=== PATIENT | female | born 1955 | race Caucasian/White ===

== ENCOUNTER → 2017-03-08 | Outpatient (CLI) | payer BC | LOC: BMCIMAGING 10:53 | PROVIDERS: ATTEND Family Medicine | DX: R68.84 Jaw pain (principal) ==

== ENCOUNTER → 2017-03-24 | Outpatient (CLI) | payer BC | LOC: FIMAGING 14:16 | PROVIDERS: ATTEND Radiology Diagnostic Radiology | DX: Z94.4 Liver transplant status (principal); K76.0 Fatty (change of) liver, not elsewhere classified ==

== ENCOUNTER → 2018-08-12 | Outpatient (CLI) | payer BC | LOC: BMCIMAGING 12:35 | PROVIDERS: ATTEND Emergency Medicine | DX: S42.401A Unspecified fracture of lower end of right humerus, initial encounter for closed fracture (principal); S92.401A Displaced unspecified fracture of right great toe, initial encounter for closed fracture; M19.071 Primary osteoarthritis, right ankle and foot; M77.31 Calcaneal spur, right foot ==

== ENCOUNTER → 2018-08-24 | Outpatient (CLI) | payer BC | LOC: BMCIMAGING 11:40 | PROVIDERS: ATTEND Orthopaedic Surgery Hand Surgery | DX: S42.331A Displaced oblique fracture of shaft of humerus, right arm, initial encounter for closed fracture (principal); X58.XXXA Exposure to other specified factors, initial encounter ==

== ENCOUNTER → 2018-09-12 | Outpatient (CLI) | payer BC | LOC: BMCIMAGING 15:05 | PROVIDERS: ATTEND Orthopaedic Surgery Hand Surgery | DX: S42.331D Displaced oblique fracture of shaft of humerus, right arm, subsequent encounter for fracture with routine healing (principal) ==

== ENCOUNTER → 2018-10-04 | Outpatient (CLI) | payer BC | LOC: BMCIMAGING 15:31 | PROVIDERS: ATTEND Orthopaedic Surgery Hand Surgery | DX: S42.331D Displaced oblique fracture of shaft of humerus, right arm, subsequent encounter for fracture with routine healing (principal) ==

== ENCOUNTER → 2018-11-01 | Outpatient (CLI) | payer BC | LOC: BMCIMAGING 15:47 | PROVIDERS: ATTEND Orthopaedic Surgery Hand Surgery | DX: S42.391D Other fracture of shaft of right humerus, subsequent encounter for fracture with routine healing (principal) ==

== ENCOUNTER → 2018-11-29 | Outpatient (CLI) | payer BC | LOC: BMCIMAGING 15:22 | PROVIDERS: ATTEND Orthopaedic Surgery Hand Surgery | DX: S42.294D Other nondisplaced fracture of upper end of right humerus, subsequent encounter for fracture with routine healing (principal) ==

== ENCOUNTER → 2019-01-17 | Outpatient (CLI) | payer BC | LOC: FIMAGING 09:57 | DX: R94.5 Abnormal results of liver function studies (principal); K76.89 Other specified diseases of liver; Z94.9 Transplanted organ and tissue status, unspecified ==

== ENCOUNTER → 2019-02-15 | Outpatient (CLI) | payer BC | LOC: BMCIMAGING 09:48 | PROVIDERS: ATTEND Orthopaedic Surgery Hand Surgery | DX: S42.391D Other fracture of shaft of right humerus, subsequent encounter for fracture with routine healing (principal); M85.9 Disorder of bone density and structure, unspecified ==

== ENCOUNTER → 2019-02-16 | Outpatient (CLI) | payer BC | LOC: FIMAGING 07:35 ==

== ENCOUNTER → 2019-02-17 | Outpatient (CLI) | payer BC ==
[~2019-02-17] MED LIST: REGADENOSON 0.4 MG/5 ML SYR IVP ONE
--- NOTE | 2019-02-17 18:04 | CPR ---
[f rep st] NONINVASIVE CARDIAC PROCEDURE REPORT DATE OF PROCEDURE: 02/17/2019 REPORT TITLE: LEXISCAN NUCLEAR STUDY STRESS TEST. INDICATION: This is a surgical clearance due to an abnormal EKG. Resting EKG shows a sinus rhythm with a ventricular rate of 72. No ischemic changes are noted. No a rrhythmias. Resting blood pressure 112/86, oxygen saturation 100%, resting heart rate 72. STRESS PORTION: Lexiscan nuclear stress test: Lexiscan injected, followed by saline flush. Cardiol ite was then injected, followed by saline flush. She had no abnormal rhythms. EKG remained stable. Blood pressure 122/72, peak heart rate 93, oxygen saturation 98%. She had no adverse symptoms with the injection. RECOVERY: She spontaneously recovered with recovery blood pressure 126/70, recovery heart rate 88. She remains asymptomatic. EKG is stable with no ischemic changes or arrhythmias. At this time, she currently is stable for nuclear imaging. /[id number]/MODL
== END ==
LOC: FIMAGING 13:17
PROVIDERS: ATTEND Internal Medicine Cardiovascular Disease
DX: Z01.810 Encounter for preprocedural cardiovascular examination (principal); R93.1 Abnormal findings on diagnostic imaging of heart and coronary circulation
CPT/HCPCS: 78452; 93017; A9500; J2785

== ENCOUNTER 2019-02-21 09:15 | Inpatient (IN) | payer BC ==
[~2019-02-21 09:15] MED LIST changes: +BACITRACIN 50,000 UNITS/10 ML SYR IRR ONE; +BUPIVACAINE/EPI 0.5% 30 ML SDV ONE; -REGADENOSON 0.4 MG/5 ML SYR IVP ONE; +TRANEXAMIC ACID 1,000 MG in NS 100 ML IV ONE; +TRANEXAMIC ACID 3,000 MG in NS (SYRINGE) 50 ML IRR ONE
[2019-02-21] MEDS ORDERED: ceFAZolin 2 GM/DEXTROSE 100 ML IV ONE (09:29)
[2019-02-21] MEDS ORDERED: VANCOMYCIN HCL/NORMAL SALINE 250 ML IV ONE (09:29)
[2019-02-21] MEDS ORDERED: NS 500 ML IV ONE (09:40)
[2019-02-21] MEDS ORDERED: LIDOCAINE 1% 2 ML INJ ID PRN (09:40)
--- NOTE | 2019-02-21 09:52 | PDHPUP ---
History & Physical Update H&P update statement: This history and physical update is based on an assessment of the patient which was completed after admission or registration (within 24 hours), but prior to the surgery/procedure. H&P update: H&P reviewed & patient examined, no change in patient's condition since H&P completed
--- NOTE | 2019-02-21 10:29 | PDANEPAE ---
ANE History of Present Illness traumatic fx R prox humerus, nonunion here for ORIF ANE Past Medical History - Cardiovascular History Hx Hypertension: No Hx Arrhythmias: No Hx Chest Pain: No Hx Coronary Artery / Peripheral Vascular Disease: Yes Hx CHF / Valvular Disease: No Hx Palpitations: No - Pulmonary History Hx COPD: No Hx Asthma/Reactive Airway Disease: No Hx Recent Upper Respiratory Infection: No Hx Oxygen in Use at Home: Yes Hx Sleep Apnea: No Sleep Apnea Screening Result - Last Documented: Negative Pulmonary History Comment: PNA X2 IN PAST - Neurologic History Hx Cerebrovascular Accident: No Hx Seizures: No Hx Dementia: No - Endocrine History Hx Diabetes: No - Renal History Hx Renal Disorders: No Renal History Comment: KIDNEY DISEASE. WAS ON DIALYSIS FOR 9 MOS - LAST TX 4 YRS AGO. STILL HAS FISTULA - Liver History Hx Hepatic Disorders: Yes Hepatic History Comment: LIVER TRANSPLANT 2008. STENT - Neurological & Psychiatric Hx Hx Neurological and Psychiatric Disorders: No - Cancer History Hx Cancer: No - Congenital Disorder History Hx Congenital Disorders: No Congenital History Comment: ALPHA 1 ANTI-TRYPSIN DEFICIENCY - GI History Hx Gastrointestinal Disorders: Yes Gastrointestinal History Comment: DIARRHEA W/MEDS - Other Health History Other Health History: L ARM FISTULA - PLACED BUT NEVER USED. VEINS ON L HAND USED AND BADLY BRUISED AND COLLAPSED - LAST 2 DRAWS WERE SYRINGE DRAWS. NEITHER ARM FOR BP - Chronic Pain History Chronic Pain: Yes (BACK, KNEES) - Surgical History Prior Surgeries: LIVER TRANSPLANT 2008. WRIST L. APPENDECTOMY. KNEE L SCOPE. EYE SURG - RETINAL. FOOT INJURY. BREAST BX ANE Review of Systems Review of Systems: - Exercise capacity METS (RN): 4 METS ANE Patient History - Allergies Allergies/Adverse Reactions: hydromorphone HCl [From Dilaudid] Allergy (Verified 08/12/15 14:58) Hallucinations iodine Allergy (Verified 08/12/15 14:58) Throat tightness, neck swelling Alarcon peppers Allergy (Unknown, Uncoded 08/12/15 14:58) Unknown - Home Medications Home medications: home medication list seen and reviewed Home Medications: LISINOPRIL 12/28/10 [Last Taken Unknown] Quinine 340mg PRN 11/18/12 [Last Taken Unknown] Lasix 02/06/19 [Last Taken Unknown] Multivitamin 02/06/19 [Last Taken Unknown] Tacrolimus 02/06/19 [Last Taken Unknown] - NPO status NPO Status: no food or drink >8 hours NPO Since - Liquids (Date): 02/21/19 NPO Since - Liquids (Time): 07:30 NPO Since - Solids (Date): 02/20/19 NPO Since - Solids (Time): 18:00 - Anes Hx Anes Hx: no prior problems - Smoking Hx Smoking Status: Never smoked - Alcohol Use Alcohol Use: Occasionally - Family Anes Hx Family Hx Anesthesia Complications: NEG ANE Labs/Vital Signs - Labs Result Diagrams: 02/21/19 10:00 - Vital Signs Blood Pressure: 161/71 Heart Rate: 75 Respiratory Rate: 18 O2 Sat (%): 100 Height: 171.45 cm Weight: 60.328 kg ANE Physical Exam - Airway Neck exam: FROM Mallampati Score: Class 2 Mouth exam: normal dental/mouth exam - Pulmonary Pulmonary: no respiratory distress, clear to auscultation - Cardiovascular Cardiovascular: regular rate and rhythym, no murmur, rub, or gallop - ASA Status ASA Status: III ANE Anesthesia Plan Anesthesia Plan: general endotracheal anesthesia, GA w LMA
[2019-02-21] MEDS ORDERED: MIDAZOLAM 2 MG/2 ML VIAL IVP ONE (10:33)
[2019-02-21] MEDS ORDERED: PROPOFOL 200 MG/20 ML VIAL ONE (10:38)
[2019-02-21] MEDS ORDERED: LIDOCAINE 2% 100 MG/5 ML SYR ONE (10:38)
[2019-02-21] MEDS ORDERED: fentaNYL 100 MCG/2 ML INJ ONE ×5 (10:38→16:40)
[2019-02-21] MEDS ORDERED: VANCOMYCIN 1 GM VIAL ONE (11:32)
[2019-02-21] MEDS: VANCOMYCIN 1 GM VIAL IRR ONE ×2 (11:34→11:36)
[2019-02-21] MEDS ORDERED: DEXAMETHASONE 4 MG/ML VIAL ONE (11:37)
[2019-02-21] MEDS ORDERED: ONDANSETRON 4 MG/2 ML VIAL ONE (11:37)
[2019-02-21] MEDS ORDERED: TRIAMCINOLONE ACETONIDE 40 MG/ML VIAL ONE (11:45)
[2019-02-21] MEDS ORDERED: ePHEDrine SULFATE 25 MG/5 ML SYR ONE (13:44)
[2019-02-21] MEDS ORDERED: NALOXONE HCL 0.4 MG/ML INJ IVP PRN (15:03)
[2019-02-21] MEDS ORDERED: ACETAMINOPHEN 500 MG TAB PO PRN (15:03)
[2019-02-21] MEDS ORDERED: ONDANSETRON 4 MG/2 ML VIAL IVP PRN ×2 (15:03→15:13)
[2019-02-21] MEDS ORDERED: oxyCODONE IR 5 MG TAB PO PRN ×2 (15:03→15:13)
[2019-02-21] MEDS ORDERED: HYDROCODONE/APAP 5/325 TAB PO PRN (15:03)
--- NOTE | 2019-02-21 15:06 | POSTANESTH ---
Post Anesthetic Evaluation Cardiovascular Status: Normal, Stable, Similar to Pre-Op Cond Respiratory Status: Normal, Stable, Similar to Pre-op Cond. Level of Consciousness/Mental Status: Can Participate in Eval, Alert and Oriented Pain Control: Adequate, Prn Tx Ordered Nausea/Vomiting Control: Adequate, Prn Tx Ordered Complications Possibly Related to Anesthesia: None Noted
[2019-02-21] MEDS ORDERED: ACETAMINOPHEN 325 MG TAB PO PRN (15:13)
[2019-02-21] MEDS ORDERED: PROMETHAZINE HCL 25 MG/ML INJ IVP PRN (15:13)
[2019-02-21] MEDS ORDERED: ALBUTEROL 60 PUFFS/8 GM MDI IH PRN (15:19)
[2019-02-21] MEDS ORDERED: LR 1,000 ML IV SCH (15:30)
[2019-02-21] MEDS: fentaNYL 100 MCG/2 ML INJ IVP PRN ×4 (15:35→16:42)
--- NOTE | 2019-02-21 16:31 | GCON ---
[f rep st] CONSULTATION DATE OF CONSULTATION: 02/21/2019 The patient is a pleasant 63-year-old female who is postoperative day 0 from a humerus fracture repai r. It sounds like she had nonunion. She has a complex medical history including liver transplant ab out 10 years ago for alpha-1 antitrypsin deficiency with resulting cirrhosis. She also has chronic k idney disease. I am asked to see her in consultation. When I speak with the patient, she says other than the weeks immediately following transplant, the patient has had no trouble with rejection, take s only sirolimus for immunosuppression, does not have symptoms of liver failure such as lower extremi ty edema, ascites, or jaundice. She also has chronic kidney disease with a baseline creatinine of about 2.2. It is notable that is h er creatinine when checked today. She recently had a trial of tacrolimus, upon which she did poorly and has been transferred back to [facility]. She is followed at [facility]. The patient had a recent nuclear medicine stress test showing no ischemia and possible infarct versus artifact in the inferolateral and apical areas. This was performed on the basis of an abnormal EKG. The most recent EKG I reviewed, which was 4 years ago, was relatively normal. She does not describ e exertional symptoms to me. REVIEW OF SYSTEMS: Complete 10-point review of systems is conducted, negative except as noted in the HPI. 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 ALLERGIES: Iodine, spann peppers and Dilaudid. HOME MEDICATIONS: Albuterol, flurandrenolide which is a topical steroid, furosemide, lisinopril, chayo nine, sirolimus, sodium bicarb, temazepam. SOCIAL HISTORY: No tobacco. No alcohol. She is the first female inducted into the [employer] [facility]. FAMILY HISTORY: Reviewed and unremarkable. PHYSICAL EXAM: VITAL SIGNS: Afebrile, 36.7. Blood pressure 120/63, pulse 99, breathing 13 times a minute, 98% on face mask. GENERAL: In no acute distress, conversant. HEENT: Sclerae are anicteric . Oropharynx is clear. Mucous membranes are moist. NECK: Supple. No lymphadenopathy or JVD. JAVIER GS: Clear to auscultation bilaterally. HEART: S1, S2. ABDOMEN: Soft, nontender and nondistended. LOWER EXTREMITIES: Without edema. Calves are nontender. SKIN: Without rash. NEUROLOGIC: Exam is nonfocal. LABS: A week ago, she had a CBC with a white count of 4, hematocrit 31, platelets are 222,000. Rece nt coags 6 months ago were normal. CBC shows a sodium of 138, potassium 4.4, chloride 109, bicarb 15 , BUN 17, creatinine 2.2. A bicarb prior to that was 9, probably leading to the institution of bicar bonate therapy. Tacrolimus level was 1.9, which is a low level last week, although she has subsequen tly been restarted. I discussed the case with Dr. Lion Mcgee. ASSESSMENT AND PLAN: This is a pleasant 63-year-old female, postop day 0 from humerus surgery follow ing nonunion. 1. Humerus surgery. Management per Dr. Doshi. The patient appears to be have her pain reasonably wel l controlled. 2. Liver transplant. We will continue her sirolimus as prescribed. She appears to have done quite well from the transplant. 3. Metabolic acidosis. This is probably from her chronic kidney disease. Will continue bicarb as p rescribed. If she is in the hospital longer than 24 hours, it is reasonable to repeat labs. 4. Chronic kidney disease. She has abnormal baseline creatinine. Would follow if in the hospital l onger than 24 hours. She appears euvolemic at this time. 5. Prophylaxis management per Ortho. DISPOSITION: Observation status. Thank you for this consultation. Hospital Medicine will follow. /[id number]/MODL
[2019-02-21] MEDS: ceFAZolin 2 GM/DEXTROSE 100 ML IV SCH (17:38)
[2019-02-21] MEDS: SODIUM BICARBONATE 650 MG TAB PO SCH ×2 (17:52→22:24)
[2019-02-21] MEDS: oxyCODONE IR 5 MG TAB PO PRN ×2 (18:54→22:28)
[2019-02-21] MEDS: ACETAMINOPHEN 325 MG TAB PO SCH ×2 (22:23→23:47)
[2019-02-21] MEDS: TEMAZEPAM 15 MG CAP PO SCH (22:24)
[2019-02-22] MEDS: ceFAZolin 2 GM/DEXTROSE 100 ML IV SCH (01:02)
[2019-02-22] MEDS: oxyCODONE IR 5 MG TAB PO PRN ×2 (02:42→08:13)
[2019-02-22] MEDS: ACETAMINOPHEN 325 MG TAB PO SCH ×6 (02:50→21:22)
--- NOTE | 2019-02-22 06:47 | GOP ---
[f rep st] OPERATIVE REPORT DATE OF OPERATION: SURGEON: Lion Doshi MD ANESTHESIA: General. PREOPERATIVE DIAGNOSIS: Right humerus nonunion. POSTOPERATIVE DIAGNOSIS: Right humerus nonunion. PROCEDURE PERFORMED: Right humerus nonunion repair with compression plating and allograft bone. ASSIST: Mary Solomon RN-FA was the clinical nursing assistant for this surgery. A clinical nursing assistant was medically necessary for the safe and successful completion of this case. ESTIMATED BLOOD LOSS: 300 cc. INDICATIONS: The patient is a 63-year-old female well known to me. She has a past medical history of a liver transplant, has multiple medical comorbidities. She first sustained a fall August 12, sustaining a right humerus shaft fracture. I treated the fracture with a Angel brace. Additionally, she has multiple medical comorbidities and risk fractures with being on immunosuppression with the liver transplant. At the time, I felt that nonoperative treatment was most prudent. However, over time, it became clear that the humerus did not heal; although, there was a perforating callus on x- rays. She had gross motion through the arm, and she had continued pain. Her pain was keeping her from performing many activities she likes and ADLs over 6 months with a persistent nonunion. I felt that a nonunion repair with compression plating would be the standard treatment for a humerus shaft nonunion. We discussed the risks and benefits. In her case, the risks of infection are real risks due to her immunosuppression, also the risks of pain, bleeding, damage to surrounding structures, stiffness, weakness, continued pain , delayed union, nonunion, wound healing complications, need for further surgeries. She understood these risks, and she wished to proceed. DESCRIPTION OF PROCEDURE: Patient was seen in the preoperative holding area. She was given the opportunity to ask any questions. All her questions were answered. Consent was signed. Surgical site was marked. She was transferred to the operative suite. Care was ensured with transferring the patient from the [facility] to the operating room table. Care was taken to pad all bony prominences. A time-out was called, including surgical and anesthesia teams, confirming the surgical site and procedure performed. General anesthesia was induced by the anesthesia team. 2 g of Ancef was given prior to incision. The patient was placed supine with the right arm on an arm table. Prior to incision , I had TXA injected. I also used topical TXA during the case to decrease the amount of blood loss. Made the curvilinear incision from the biceps tendon to the lateral edge of the biceps and back medial and down to the deltoid interval. Carefully dissected down to the biceps. At this point, I also visualized the radial nerve between the biceps brachioradialis and visualized it to protect it at all times. I also visualized the musculocutaneous under the biceps between the biceps and brachioradialis. At this point, we could dissect down further. She had fairly challenging anatomy to the prior nonunion and a very diminutive brachialis; although, all of her muscles were quite atrophied. She had profuse venous bleeding in the skin and subcutaneous layer and then a split in the lateral 1/3 of the brachialis in the standard anterior approach to the humerus. I then was able to peel away some of the fibrous tissue and hypertrophic callus that had formed. This was quite a difficult fracture. There was a lot of hypertrophic callus. This had to be taken down with a rongeur until all there was left was [place] bone prior to the accident. Her bone was quite osteoporotic , which made this a challenging ordeal. I then followed the split up to proximally and had to peal up part of the deltoid insertion to gain access to the humeral shaft. We then made the formal deltopectoral approach in the standard fashion. After splitting the callus, I could begin dissecting around the fracture site until I had visualized the fracture site. I used the rongeur to knock off some of the old organized callus. I began to slowly chip away, irrigating several times. Some cultures were taken out of the nonunion site. 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 We continued dissecting around this nonunion and this old callus. I visualized the fracture ends. I reduced the fracture with several clamps and placed 3 lag screws through the fractures. Her bone was very osteopenic and soft. I chose a Synthes plate. This was an 8-hole, long plate. I placed the guides, pinned through the plate, assessed position. I felt this was in good position. Prior to doing this, I actually repaired the fracture with 3 lag screws to take an x-ray to check fracture reduction. When taking the xray the screws all pulled out of the bone. I decided to place the plate against bone first, then reduce the fragment to the plate. This was done under fluoroscopic visualization with the plate reduced to the fracture. I then reduced the fracture to the plate. I decided to lag through the plate with a long, oblique 3.5 screw. This actually had a very nice bite. I placed two such lag screws with nice compression. There was some good compression through the fracture site. I locked the remaining screws and then checked my reduction under fluoroscopy. I was very happy with the reduction, and it appeared anatomic. I checked final x-rays. I used a long plate because she had a fracture line extending to the greater tuberosity at the initial injury. We then turned our attention in irrigating the fracture copiously with sterile saline. Then, after irrigation of the bone graft after placing the bone graft, we went to close. I closed the interval and the split brachialis with a vicryl. I had to take down part of the deltoid insertion to get the blade under , and this was repaired with a plate and some leftover insertion with a #5 FiberWire. There was quite a bit of oozing during the case. I thought it was prudent to place a suction drain, which was placed. I then closed in layers. I tried to close the muscle over the plate. I closed the skin with 2-0 Vicryl and 3-0 Monocryl, then I used be. Sterile dressing was applied and was wrapped in Yordy wrap. She tolerated the procedure well and was sent to the PACU in stable condition. Radial nerve was intact as soon as she woke up. IMPLANTS USED: Synthes extended proximal humerus plate. POSTOPERATIVE CONDITION: Stable. POSTOPERATIVE PLAN: The patient will return to my clinic in 10-14 days. I will follow her with serial x-rays. /[id number]/MODL MTDD
--- NOTE | 2019-02-22 09:03 | SOAPPROG ---
SOAP Progress Note Assessment/Plan: Assessment: POD#1 s/p R humerus nonunion repair -pt admitted as obs. She will need to stay at least another night for improved pain ctrl. Still requiring IV pain meds -Hgb 8.4 this am Plan: -NWB RUE -pain ctrl. Added robaxin and increased oxycodone -appreciate assistance of hospitalist service -Will leave drain in another day as she will stay until at least tmrw 02/22/19 09:01 Subjective: Pt seen this morning. Having quite a bit of pain in the R shoulder. Has been needing morphine every 4 hours. Having spasms in the shoulder. Objective: Vital Signs Temp Pulse Resp BP Pulse Ox 37.0 C 83 16 143/63 H 96 02/22/19 08:00 02/22/19 08:00 02/22/19 08:00 02/22/19 08:00 02/22/19 08:00 Microbiology 02/21/19 12:30 Gram Stain - Final Arm - Tissue Laboratory Results 02/22/19 05:00 02/22/19 05:00 02/21/19 02/22/19 02/23/19 05:59 05:59 05:59 Intake Total 1750 Output Total 945 Balance 805 R arm -dressing c/d/i -AIN/PIN/median intact distally -SILT -serosang drain output Drain:95 - Time Spent With Patient Time Spent With Patient: 20m ICD10 Worksheet Patient Problems: Problems Problem Status Onset Fracture of humerus with nonunion Acute - ICD10 Problem Qualifiers (1) Fracture of humerus with nonunion Qualifiers: Fracture type: closed Fracture alignment: displaced Laterality: right
[2019-02-22] MEDS: METHOCARBAMOL 750 MG TAB PO PRN ×2 (09:18→18:50)
[2019-02-22] MEDS: FUROSEMIDE 20 MG TAB PO SCH (11:49)
[2019-02-22] MEDS: SODIUM BICARBONATE 650 MG TAB PO SCH ×3 (11:49→21:22)
[2019-02-22] MEDS: LISINOPRIL 20 MG TAB PO SCH (11:49)
[2019-02-22] MEDS: [UNRECOGNIZED DRUG - OTHER] TP PRN (11:50)
[2019-02-22] MEDS: SIROLIMUS 1 MG TAB PO SCH (11:51)
--- NOTE | 2019-02-22 13:46 | HOSPPROG ---
Hospitalist Progress Note Assessment/Plan: 63 yo F w liver transplant, ckd pod 1 from humerus surgery orif on non union: culture taken, hardware in place liver transplant: continue sirolimus appears to have done quite well w regards to liver transplant CKD: cr at baseline follow daily while here no NSAIDS proph: encouraged IS consider LMWH if here add'l days dispo: will follow Subjective: sig pain in R shoulder. alert. case d/w Dr Doshi Objective: Vital Signs Temp Pulse Resp BP Pulse Ox 36.4 C 86 14 97/65 L 94 02/22/19 11:40 02/22/19 11:40 02/22/19 11:40 02/22/19 11:49 02/22/19 11:40 Microbiology 02/21/19 12:30 Gram Stain - Final Arm - Tissue Laboratory Results 02/22/19 05:00 02/22/19 05:00 02/21/19 02/22/19 02/23/19 05:59 05:59 05:59 Intake Total 1750 Output Total 945 Balance 805 - Physical Exam Constitutional: no apparent distress, appears nourished Eyes: PERRL, anicteric sclera Ears, Nose, Mouth, Throat: moist mucous membranes, hearing normal Cardiovascular: regular rate and rhythym, no murmur, rub, or gallop Respiratory: no respiratory distress, no rales or rhonchi Gastrointestinal: normoactive bowel sounds, soft, non-tender abdomen Genitourinary: no bladder fullness, No miles in urethra Skin: warm, normal color Musculoskeletal: full muscle strength Neurologic: AAOx3 ICD10 Worksheet Patient Problems: Problems Problem Status Onset Fracture of humerus with nonunion Acute
[2019-02-22] MEDS: oxyCODONE IR 15 MG TAB PO PRN ×2 (14:05→18:49)
--- NOTE | 2019-02-22 16:10 | ASMTCMCOM ---
CM Note CM Note Notes: CM reviewed pts chart. PT is recommending home without any needs. OT is recommending HC. CM met w/ pt and she reports that she is able to manage without HC. Pt reports that even with a broken arm she has been able to cook and do the dishes, although it takes her a bit longer. CM available for changes. Plan: Independent Date Signed: 02/22/2019 04:09 PM Electronically Signed By:CHRISTIE Ambriz
[2019-02-22] MEDS: TEMAZEPAM 15 MG CAP PO SCH (21:22)
[2019-02-23] MEDS: oxyCODONE IR 15 MG TAB PO PRN ×2 (00:54→06:25)
[2019-02-23] MEDS: ONDANSETRON DISINTEGRATING 4 MG TAB PO PRN (00:56)
[2019-02-23] MEDS: ACETAMINOPHEN 325 MG TAB PO SCH ×6 (01:54→22:03)
--- NOTE | 2019-02-23 08:09 | SOAPPROG ---
SOAP Progress Note Assessment/Plan: Assessment: POD#2 s/p R humerus nonunion repair -She will need to stay another night for improved pain ctrl. Still requiring IV pain meds. -vitals stable Plan: -NWB RUE -pain ctrl. Increased oxycodone to 20 -appreciate assistance of hospitalist service -drain d/c'd -plan d/c tmrw 02/23/19 08:09 Subjective: Pain ctrl improved today, but still requiring morphine in between, especially when she tries to get up and around. Objective: Vital Signs Temp Pulse Resp BP Pulse Ox 37.0 C 91 16 135/53 H 98 02/23/19 07:44 02/23/19 07:44 02/23/19 07:44 02/23/19 07:44 02/23/19 07:44 Microbiology 02/21/19 12:30 Gram Stain - Final Arm - Tissue 02/21/19 12:30 Mycobacterial Smear (FRANCHESKA) - Final Arm - Tissue Laboratory Results 02/22/19 05:00 02/22/19 05:00 02/22/19 02/23/19 02/24/19 05:59 05:59 05:59 Intake Total 1750 350 Output Total 945 190 Balance 805 160 RUE -serous drain output -intact AIN/PIN/ulnar -SILT -pain with attempt elbow flexion -dressing c/d/i - Time Spent With Patient Time Spent With Patient: 20 min - Pending Discharge Pending Discharge Within 24 Hours: Yes Pending Discharge Date: 02/24/19 Pending Discharge Time: 11:00 ICD10 Worksheet Patient Problems: Problems Problem Status Onset Fracture of humerus with nonunion Acute - ICD10 Problem Qualifiers (1) Fracture of humerus with nonunion Qualifiers: Fracture type: closed Fracture alignment: displaced Laterality: right
--- NOTE | 2019-02-23 10:11 | HOSPPROG ---
Hospitalist Progress Note Assessment/Plan: 63 yo F w liver transplant, ckd pod 1 from humerus surgery orif on non union: culture taken, hardware in place liver transplant: continue sirolimus appears to have done quite well w regards to liver transplant CKD: cr at baseline follow daily while here no NSAIDS pain: still sig on IV morhine, escallating doses oxycodone proph: encouraged IS consider LMWH if here add'l days dispo: will follow Subjective: case d/w Dr. Doshi. still w sig pain Objective: Vital Signs Temp Pulse Resp BP Pulse Ox 37.0 C 91 16 135/53 H 98 02/23/19 07:44 02/23/19 07:44 02/23/19 07:44 02/23/19 07:44 02/23/19 07:44 Microbiology 02/21/19 12:30 Gram Stain - Final Arm - Tissue 02/21/19 12:30 Mycobacterial Smear (FRANCHESKA) - Final Arm - Tissue Laboratory Results 02/22/19 05:00 02/22/19 05:00 02/22/19 02/23/19 02/24/19 05:59 05:59 05:59 Intake Total 1750 350 Output Total 945 190 Balance 805 160 - Physical Exam Constitutional: no apparent distress, appears nourished Eyes: PERRL, anicteric sclera Ears, Nose, Mouth, Throat: moist mucous membranes, hearing normal Cardiovascular: regular rate and rhythym, no murmur, rub, or gallop Respiratory: no respiratory distress, no rales or rhonchi Gastrointestinal: normoactive bowel sounds, soft, non-tender abdomen Genitourinary: No miles in urethra Skin: warm, normal color Musculoskeletal: other (R radial pulse 2+, R hand NV intact) Neurologic: AAOx3 Psychiatric: interacting appropriately ICD10 Worksheet Patient Problems: Problems Problem Status Onset Fracture of humerus with nonunion Acute
[2019-02-23] MEDS: FUROSEMIDE 20 MG TAB PO SCH (10:19)
[2019-02-23] MEDS: LISINOPRIL 20 MG TAB PO SCH (10:20)
[2019-02-23] MEDS: SODIUM BICARBONATE 650 MG TAB PO SCH ×3 (10:20→22:03)
[2019-02-23] MEDS: [UNRECOGNIZED DRUG - OTHER] TP PRN (10:20)
[2019-02-23] MEDS: SIROLIMUS 1 MG TAB PO SCH (10:20)
[2019-02-23] MEDS: oxyCODONE IR 5 MG TAB PO PRN ×2 (13:26→18:34)
--- NOTE | 2019-02-23 16:16 | PDMN ---
Medical Necessity Medical necessity: Change to inpt as of 02/23/19, meets inpt criteria per MD order and [facility] S-[id number], Humerus Fracture, Closed or Open Reduction, inpt indicated as pt does not meet dc readiness criteria, still with significant pain, required IV Morphine this morning and last night in addition to PO meds, creatinine up to 2.7 today (baseline is 2.2). 63 y/o POD#2 R humerus nonunion repair, PMHx includes liver transplant and CKD, est LOS>2MN for post-op pain management.
[2019-02-23] MEDS: METHOCARBAMOL 750 MG TAB PO PRN (18:34)
[2019-02-23] MEDS: TEMAZEPAM 15 MG CAP PO SCH (22:03)
[2019-02-24] MEDS: ACETAMINOPHEN 325 MG TAB PO SCH ×4 (01:16→13:56)
[2019-02-24] MEDS: oxyCODONE IR 5 MG TAB PO PRN (07:14)
[2019-02-24] MEDS: SODIUM BICARBONATE 650 MG TAB PO SCH (08:33)
[2019-02-24] MEDS: SIROLIMUS 1 MG TAB PO SCH (08:34)
--- NOTE | 2019-02-24 09:23 | SOAPPROG ---
SOAP Progress Note Assessment/Plan: Assessment: POD#3 s/p R humerus nonunion repair -pain improved Plan: -EMMY HOLT -appreciate assistance of hospitalist service -d/c today 02/24/19 09:22 Subjective: Pain better controlled today. Objective: Vital Signs Temp Pulse Resp BP Pulse Ox 36.9 C 98 16 149/67 H 92 02/23/19 22:04 02/24/19 08:00 02/24/19 08:00 02/24/19 08:00 02/24/19 08:00 Microbiology 02/21/19 12:30 Gram Stain - Final Arm - Tissue Laboratory Results 02/22/19 05:00 02/24/19 05:00 02/23/19 02/24/19 02/25/19 05:59 05:59 05:59 Intake Total 350 500 Output Total 190 Balance 160 500 R arm -dressing changed, incision clean with mild serosang drainage at the staple sites. Wrapped entire arm down to the hand -edema in forearm and hand worsening -intact AIN/PIN/ulnar motor -SILT ICD10 Worksheet Patient Problems: Problems Problem Status Onset Fracture of humerus with nonunion Acute - ICD10 Problem Qualifiers (1) Fracture of humerus with nonunion Qualifiers: Fracture type: closed Fracture alignment: displaced Laterality: right
--- NOTE | 2019-02-24 10:47 | ASDISCHSUM ---
Discharge Information Plan Status:Home with No Needs Medically Cleared to Leave:02/24/2019 Discharge Date:02/24/2019 CM D/C Disposition:Home, Routine, Self-Care ADT D/C Disposition:Home, Routine, Self-Care Projected Discharge Date:02/24/2019 Transportation at D/C:Family Discharge Delay Reason: Follow-Up Date:02/24/2019 Discharge Slot: Final Diagnosis: Placement Information Patient Contact Information Contact Name:ANASTASIYA Relationship:Life Partner Address:[address] City:[place] Alternate Phone: [facility]/Zip Code:[place] [address] Email: Financial Information Financial Class:BC Primary Plan Desc:[employer] Primary Plan Number:[id number] Secondary Plan Desc: Secondary Plan Number: Assessment Information LACE LACE Length of stay for Answers: 1 day current admission Acuity / Level of Answers: Yes Care: Did the patient have an inpatient admission? Comorbidities - select Answers: Coronary Artery Disease all that apply Moderate or severe liver or renal disease Opioid dependence / Chronic pain # of Emergency department Answers: 0 visits in the last 6 months Score: 14 Date Signed: 02/24/2019 10:43 AM Electronically Signed By:BELINDA Tijerina [facility] Progress Note CM Note CM Note Notes: CM reviewed pts chart. PT is recommending home without any needs. OT is recommending HC. CM met w/ pt and she reports that she is able to manage without HC. Pt reports that even with a broken arm she has been able to cook and do the dishes, although it takes her a bit longer. CM available for changes. Plan: Independent Date Signed: 02/22/2019 04:09 PM Electronically Signed By:CHRISTIE Ambriz Intervention Information
[2019-02-24 12:49] VITALS: BP 113/55
[2019-02-24] MEDS: ONDANSETRON DISINTEGRATING 4 MG TAB PO PRN (13:29)
--- NOTE | 2019-02-24 13:57 | HOSPPROG ---
Hospitalist Progress Note Assessment/Plan: cr elevated. hold jessee and lasix repeat in AM 63 yo F w liver transplant, ckd pod 2 from humerus surgery. First encounter, chart reviewed. orif on non union: culture taken, hardware in place liver transplant: continue sirolimus appears to have done quite well w regards to liver transplant CKD: cr elevated pt states this happens follow up outpt no NSAIDS pain: better on IV morhine, escallating doses oxycodone proph: encouraged IS consider LMWH dispo: will follow Subjective: Still having some discomfort. Eating well. Feels well otherwise. Objective: Vital Signs Temp Pulse Resp BP Pulse Ox 36.7 C 80 16 113/55 L 98 02/24/19 12:47 02/24/19 12:47 02/24/19 12:47 02/24/19 12:47 02/24/19 12:47 Microbiology 02/21/19 12:30 Mycobacterial Smear (FRANCHESKA) - Final Arm - Tissue 02/21/19 12:30 Gram Stain - Final Arm - Tissue Laboratory Results 02/22/19 05:00 02/24/19 05:00 02/23/19 02/24/19 02/25/19 05:59 05:59 05:59 Intake Total 350 500 Output Total 190 Balance 160 500 - Physical Exam Constitutional: appears nourished, chronically ill appearing, uncomfortable Eyes: PERRL, anicteric sclera, EOMI Ears, Nose, Mouth, Throat: moist mucous membranes, hearing normal, ears appear normal Cardiovascular: regular rate and rhythym, No JVD, No edema Respiratory: no respiratory distress, no rales or rhonchi, reduced air movement Gastrointestinal: normoactive bowel sounds, No tenderness, No ascites Skin: warm, normal color, No mottled Musculoskeletal: joint tenderness, pain with ROM, generalized weakness Neurologic: AAOx3 Psychiatric: not encephalopathic, thought process linear, anxious ICD10 Worksheet Patient Problems: Problems Problem Status Onset Fracture of humerus with nonunion Acute
--- NOTE | 2019-02-24 14:10 | ASMTDCNOTE ---
Case Management Discharge Discharge Order Complete? Answers: Yes Patient to Obtain Answers: via Family Medications Transportation Arranged Answers: Family/Friends Discharge Comments Notes: Pt is discharging home today following planned R shoulder ORIF. She was cleared by PT and declined home care. She is discharging home independent with her partner and no CM needs. Date Signed: 02/24/2019 01:56 PM Electronically Signed By:BELINDA Tijerina
--- NOTE | 2019-02-27 06:20 | GDS ---
[f rep st] DISCHARGE SUMMARY PROCEDURES PERFORMED: On February 21, 2019, open reduction and internal fixation of right humerus nonunion. REASON FOR ADMISSION: Patient was admitted initially as an obs for pain control and for medical monitoring due to her multiple medical comorbidities including status post liver transplant, chronic kidney disease, hypertension. She was later converted to an inpatient admission due to continued need for IV pain control. HOSPITAL COURSE: The patient's hospital course was uncomplicated. She was admitted after her above-mentioned procedure. On postop day #1, her pain was not well controlled with the dose of oxycodone and morphine requiring IV morphine for breakthrough, even with this was not able to sleep. I increased the oxycodone dose. By day #2, she had slightly better pain control, however, was still requiring IV morphine for breakthrough between doses of p.o. oxycodone. She was working with a physical therapist. I consulted the internal medicine service to co-manage. I again increased her oxycodone to 20 mg q.4 hours. By day #3, on this new dose she stated that her pain was much better controlled. She was able to sleep better and was no longer requiring IV morphine, thus, was deemed stable for discharge. Her labs and vitals were stable during her stay. Cultures of the nonunion were negative. She was thus discharged home. DISCHARGE DIAGNOSIS: Right humerus shaft nonunion. DISCHARGE PLAN: The patient will follow up with me in about 2 weeks. /[id number]/MODL MTDD
== END 2019-02-24 15:34 | disposition home or self-care (01) | DRG 940 ==
LOC: F3N 09:15 → EDSTATUS 10:45 → F3N 17:04 → OBSVTOIN 02-23 14:59
PROVIDERS: ADMIT Orthopaedic Surgery Hand Surgery; ATTEND Orthopaedic Surgery Hand Surgery
PROC: 0PSF04Z Reposition Right Humeral Shaft with Internal Fixation Device, Open Approach (ICD-10-PCS; principal; 2019-02-21 10:45)
DX: G89.18 Other acute postprocedural pain (principal); S42.301K Unspecified fracture of shaft of humerus, right arm, subsequent encounter for fracture with nonunion; Z94.4 Liver transplant status; I12.9 Hypertensive chronic kidney disease with stage 1 through stage 4 chronic kidney disease, or unspecified chronic kidney disease; N18.9 Chronic kidney disease, unspecified
CPT/HCPCS: 97116-GP; 97161-GP; 97166-GO; 97530-GO; 97530-GP; 97535-GO; C1713; G0378; J0690; J1100; J2001; J2250; J2270; J2405; J2704; J3010; J3301; J3370

== ENCOUNTER → 2019-03-03 | Outpatient (CLI) | payer BC | LOC: BMCIMAGING 13:29 ==